=== PATIENT | male | born 1965 | race Caucasian/White ===

== ENCOUNTER → 2019-02-17 | Emergency (ER) | payer MEDICAID ==
[2019-02-17] MEDS: FLUORESCEIN STRIP LEFT EYE (13:42)
[2019-02-17] MEDS: TETRACAINE 0.5% 4 ML OPH LEFT EYE (13:42)
== END | disposition home or self-care (01) ==
LOC: FTE 10:27
DX: T15.92XA Foreign body on external eye, part unspecified, left eye, initial encounter (principal); X58.XXXA Exposure to other specified factors, initial encounter; Y92.9 Unspecified place or not applicable
CPT/HCPCS: 99283; Z7502